=== PATIENT | female | born 1965 | race Caucasian/White ===

== ENCOUNTER 2016-12-17 13:51 | Emergency (ER) | payer BC ==
[~2016-12-17 13:51] MED LIST: DARVOCET-N 1001 TA1 PO; FLEXERIL10 MG PO; IBUPROFEN800 MG PO
== END 2016-12-17 15:36 | disposition home or self-care (01) ==
LOC: CFTX 13:51 → CED 13:51 → CFTX 15:26
DX: S29.012A Strain of muscle and tendon of back wall of thorax, initial encounter (principal); F17.200 Nicotine dependence, unspecified, uncomplicated; X58.XXXA Exposure to other specified factors, initial encounter; Y92.9 Unspecified place or not applicable
CPT/HCPCS: 99283